=== PATIENT | female | born 1965 | race Caucasian/White ===

== ENCOUNTER 2018-12-02 08:24 | Inpatient (IN) ==
[2018-12-02] MEDS ORDERED: KETOROLAC 30 MG/ML VIAL IV STA (10:04)
[2018-12-02] MEDS ORDERED: LORazepam 1 MG/2 ML VIAL IV PRN (11:33)
[2018-12-02] MEDS ORDERED: ONDANSETRON INJ 2 MG/ML 2 ML VIAL IV PRN (11:33)
[2018-12-02] MEDS ORDERED: LORazepam 1 MG TAB PO PRN (11:33)
[2018-12-02] MEDS ORDERED: PROMETHAZINE HCL 12.5 MG in SODIUM CHLORIDE 0.9% 50 ML IV PRN (11:33)
--- NOTE | 2018-12-02 11:40 | History & Physical Report ---
Date of Service December 02, 2018 Assessment & Plan (1) Lumbar disc herniation with radiculopathy: At this time the patient has declined over the past several weeks has been scheduled for surgery in the next few weeks but seems unable to tolerate the pain be candidate for urgent decompression and fusion at L5-S1. At this time will admit to the hospital for pain control and have her evaluated by anesthesia and hopefully perform surgery as soon as possible in light of her severe pain and urinary symptoms. This was reviewed in detail the patient and her the understanding Present on Admission?: Yes History of Present Illness Chief Complaint: Severe back and leg pain Primary Care Provider: NO PCP This is a 53-year-old female that presents with severe back and right leg radiculopathy. I did see her in my office last week. She presents with severe back pain radiating to the right buttock posterior lateral thigh extending to her foot. Is markedly limiting her ability to stand and ambulate. She is been unable to sleep. Of note she notices some loss of urinary control. She is tri ed gabapentin as well as oxycodone without any relief of her symptoms. She has been into the ER at least on one occasion. She presents today again to the ER with a marked decline in pain control over the weekend. She denies any worsening weakness to the lower extremity still difficulty with ambulating. The pain does awaken her from sleep. The left lower extremities not affected. Allergies Allergy/AdvReac Type Severity Reaction Status Date / Time No Known Allergies Allergy Unverified 12/02/18 09:17 Home Medications Home Medications Medication Instructions Recorded Confirmed Type albuterol sulfate [Proventil HFA] 2 puff INHALATION QID PRN 12/02/18 12/02/18 History amitriptyline 25 mg PO HS 12/02/18 12/02/18 History cholecalciferol (vitamin D3) 1,000 unit PO DAILY 12/02/18 12/02/18 History [Vitamin D3] fluticasone propion-salmeterol 1 puff INHALATION Q12H 12/02/18 12/02/18 History [Advair Diskus] gabapentin 300 mg PO QID 12/02/18 12/02/18 History methylprednisolone 4 mg PO .TAPER DOSE 12/02/18 12/02/18 History oxycodone-acetaminophen 1 tab PO Q6H PRN 12/02/18 12/02/18 History promethazine 12.5 mg PO Q6H PRN 12/02/18 12/02/18 History valacyclovir 500 mg PO Q12 12/02/18 12/02/18 History Past Med/Surg History Medical History Lumbar herniated disc Family History Other No pertinent family history in first degree relatives Social History Feels Safe at Home: Yes Smoking Status: Current every day smoker Physical Exam Physical Exam: On exam she is most comfortable in the position on her left side. She exhibits markedly positive tension signs straight leg raise on the right some decreased sensation to light touch and cold right lower extremity. There is weakness to dorsiflexion plantarflexion on the right 4/5 compared to the left at a 5 out of 5. Results & Data Vital Signs (Past 12 Hours) Vital Signs Temp Pulse Pulse Resp BP BP Pulse Ox 12/02/18 10:31 60 16 100/48 L 98 12/02/18 08:31 36.6 C 59 L 16 101/77 100 Code Status & VTE Plan VTE Prophylaxis Plan VTE Prophylaxis will be ordered: Yes
[2018-12-02 12:16] LABS: Basophils # (auto) 0.01 K/uL (0-0.2); Basophils % (auto) 0.1 %; Eosinophils # (auto) 0.04 K/uL (0-0.5); Eosinophils % (auto) 0.6 %; Hematocrit (blood only) 34.2 % (37-47); Hemoglobin 11.6 g/dL (12.0-16.0); Immature Granulocytes # (auto) 0.01 K/uL (0.00-0.02); Immature Granulocytes % (auto) 0.1 %; Lymphocytes # (auto) 2.46 K/uL (1.2-3.4); Lymphocytes % (auto) 34.9 %; Mean Corpuscular Hgb Conc 33.9 g/dL (32-36); Mean Corpuscular Volume 91.4 fL (80-100); Mean Platelet Volume 9.9 fL (7.4-10.4); Monocytes # (auto) 0.28 K/uL (0.11-0.59); Neutrophils # (auto) 4.25 K/uL (1.4-6.5); Neutrophils % (auto) 60.3 %; Platelet Count 192 K/uL (130-400); RDW Coefficient of Variation 13.5 % (11.5-14.5); RDW Standard Deviation 44.4 fL (36.4-46.3); Red Blood Count 3.74 M/uL (4.2-5.4); White Blood Count 7.05 K/uL (4.8-10.8)
--- NOTE | 2018-12-02 12:17 | Emergency Department Note ---
Entered by Rivas Cornell acting as a scribe for Vamshi Harris DO History of Present Illness General Chief complaint: Back Injury/Pain Stated complaint: SEVERE LOWER BACK PAIN Time Seen by Provider: 12/02/18 08:36 Source: patient History of Present Illness Provider complaint: Back pain Onset (ago): day(s) (Past couple days) Location: back Radiation: non-radiation Severity: severe Pain Consistency: + other (Worsening) Maximum Pain Intensity: 9 Current Pain Intensity: 9 Relieved By: + none Associated symptoms: + other (Positive incontinence ) The patient is a 53 year old female who presents to the Emergency Room with complaints of worsening, severe lower back pain that has been chronic for months but started to get worse over the past 5 days. The patient rates her pain as a 9/10 and notes that nothing makes it better. The patient adds that over the past 5 days she also has noticed an increase in urinary incontinence. The patient currently has a herniated disc at L5 that is protruding into her S1 nerve. She has surgery scheduled for 2 weeks from now with Dr. Calero. The patient notes that the last time she saw Dr. Calero was 5 days ago and she was told at this time if her symptoms get worse to go to the ED. The patient mentioned that none of her pain medication has worked to relieve her pain even when she takes double her normal dose. Home Medications Home Medications Medication Instructions Recorded Confirmed Type albuterol sulfate [Proventil HFA] 2 puff INHALATION QID PRN 12/02/18 12/02/18 History amitriptyline 25 mg PO HS 12/02/18 12/02/18 History cholecalciferol (vitamin D3) 1,000 unit PO DAILY 12/02/18 12/02/18 History [Vitamin D3] fluticasone propion-salmeterol 1 puff INHALATION Q12H 12/02/18 12/02/18 History [Advair Diskus] gabapentin 300 mg PO QID 12/02/18 12/02/18 History methylprednisolone 4 mg PO .TAPER DOSE 12/02/18 12/02/18 History oxycodone-acetaminophen 1 tab PO Q6H PRN 12/02/18 12/02/18 History promethazine 12.5 mg PO Q6H PRN 12/02/18 12/02/18 History valacyclovir 500 mg PO Q12 12/02/18 12/02/18 History Allergies Allergy/AdvReac Type Severity Reaction Status Date / Time No Known Allergies Allergy Unverified 12/02/18 09:17 Past Med/Surg History Medical History Lumbar herniated disc Family History Other No pertinent family history in first degree relatives Social History Feels Safe at Home: Yes Smoking Status: Current every day smoker Review of Systems See HPI for pertinent positives & negatives. and A total of 10 systems reviewed and were otherwise negative Physical Exam Vital Signs Vital Signs - 24 hr 12/02/18 08:31 12/02/18 10:31 Temperature 36.6 C Temperature Source Oral Sepsis Recent Fever Within 48 Hours No Sepsis New/Unexplained Change in Mental Status No Sepsis Action Taken by Nursing No Action Required Pulse Rate 59 L Pulse Rate [Finger] 60 Respiratory Rate 16 16 Respiratory Effort / Characteristics Non-Labored Respiratory Depth Normal Blood Pressure 101/77 Blood Pressure [Right Arm] 100/48 L Blood Pressure Mean 85 Blood Pressure Mean [Right Arm] 65 Pulse Oximetry 100 98 Oxygen Delivery Method Room Air CONSTITUTIONAL/VITAL SIGNS: Reviewed / noted above. GENERAL: Non-toxic in appearance. INTEGUMENTARY: Warm, dry, and [place]. HEAD: Normocephalic. EYES: without scleral icterus or trauma. ENT/OROPHARYNX: clear and moist. LYMPHADENOPATHY/NECK: Is supple without lymphadenopathy or meningismus. RESPIRATORY: Lungs clear and equal. CARDIOVASCULAR: Regular rate and rhythm. GI/ABDOMEN: Soft and nontender. No organomegaly or pulsatile mass. No rebound or guarding. Normal bowel sounds. EXTREMITIES: Warm and well perfused. BACK: No CVA tenderness. NEUROLOGICAL: Intact without focal deficits. PSYCHIATRIC: normal affect. MUSCULOSKELETAL: Normally developed with good muscle tone. Course 0837: Past medical records reviewed. The patient was evaluated in room B03B, and a complete history and physical examination were performed. 0907: I spoke to Dr. Galilea Montanez about the patient's case. He is going to come evaluate the patient after he is done in the OR. 1205: Dr. Galilea Montanez evaluated the patient and will be accepting her for further evaluation and treatment. Consultations Consultation #1: I spoke to Dr. Calero - [facility] about the patient's case. He is going to come evaluate the patient. Time: 09:07 Consultation #2: Dr. Calero - [facility] evaluated the patient and will be accepting her for further evaluation and treatment. Time: 12:05 Administered Medications Discontinued Medications Ketorolac Tromethamine (Toradol) 30 mg IV NOW STA Stop: 12/02/18 10:05 Last Admin: 12/02/18 10:31 Dose: 30 mg Documented by: [id number] Medical Decision Making Differential Diagnosis Differential: Musculoskeletal, Disc Herniation, Fracture, Cord Compression, Discitis, Infectious, Aortic Pathology, Renal Colic, UTI/Pyelonephritis, Acute Exacerbation of Chronic Pain, Sciatica, Cauda Equina, amongst other pathologies entertained. Medical Records Attestation: I reviewed the patient's medical records. Home Medications Current Medication List: was personally reviewed by me Laboratory Data Attestation: I reviewed the patient's lab results. Result diagrams: 12/02/18 12:01 12/02/18 12:01 Blood Pressure Blood Pressure Findings: Low blood pressure Blood Pressure Disposition: Referred to patients primary care provider DEYANIRA Rosenberg Is a 53-year-old female who presents to the ED with a chief complaint of low back pain. The patient was seen by Dr. Calero about 5 days ago in the office. The patient reports having L5 herniated disc that required surgery and her surgery was originally scheduled for the 16th or th of the month. The patient states that she has had increased pain as well as some urinary incontinence. She was told to come here for further evaluation of her symptoms worsen. The patient has normal vital signs. She is afebrile. She ambulates with mild discomfort. The patient does not have any focal neurologic symptoms on my exam. I spoke with Dr. Calero about the patient. He will see her in the ED. He is admitting her after he evaluated her. She was given IV Toradol for pain. Impression & Plan Intractable low back pain The scribe's documentation has been prepared under my direction and personally reviewed by me in its entirety. I confirm that the note above accurately reflects all work, treatment, procedures, and medical decision making performed by me.
[2018-12-02 12:38] LABS: Alanine Aminotransferase 32 U/L (12-78); Albumin Level 3.6 gm/dl (3.4-5.0); Aspartate Aminotransferase 13 U/L (15-37); BUN Creatinine Ratio 29.2 (10-20); Blood Urea Nitrogen 25 mg/dl (7-18); Calcium 8.7 mg/dl (8.5-10.1); Carbon Dioxide 31 mmol/L (21-32); Chloride 102 mmol/L (98-107); Est GFR (Non-African American) 79.3; Glucose 128 mg/dl (70-99); Potassium 3.9 mmol/L (3.5-5.1); Sodium 139 mmol/L (136-145)
[2018-12-02 12:41] LABS: Albumin Globulin Ratio 1.3 (0.9-2); Alkaline Phosphatase 35 U/L (45-117); Bilirubin,Total 0.2 mg/dl (0.2-1); Globulin 2.8 gm/dl (2.5-4.0); Total Protein 6.4 gm/dl (6.4-8.2)
[2018-12-02 12:44] LABS: Pregnancy Test, Serum Negative (Negative)
[2018-12-02] MEDS ORDERED: CEFAZOLIN 2000MG 2,000 MG/15 ML SYR IV SCH (13:30)
[2018-12-02] MEDS ORDERED: GABAPENTIN 300 MG CAP PO SCH (14:00)
[2018-12-02] MEDS ORDERED: PROMETHAZINE HCL 25 MG TAB PO PRN (14:33)
[2018-12-02] MEDS ORDERED: ALBUTEROL HFA 8 GM INHALER INH PRN (14:33)
[2018-12-02] MEDS: LACTATED RINGER'S 1,000 ML IV SCH (14:48)
--- NOTE | 2018-12-02 16:00 | Anesthesiology Consultation ---
Date of Service December 02, 2018 Assessment & Plan Chart Review Chart Review: Acceptable Risk for Surgery and Patient NOT seen in Pre Admission Testing Consults Requested none ASA ASA3 Proposed Anesthesia Anesthesia Type: General History Height/Weight Height: 5 ft 3 in Weight: 93.8 kg Allergies Allergy/AdvReac Type Severity Reaction Status Date / Time No Known Allergies Allergy Unverified 12/02/18 09:17 Medications Home Medications Medication Instructions Recorded Confirmed Last Taken albuterol sulfate [Proventil HFA] 2 puff INHALATION QID PRN 12/02/18 12/02/18 12/02/18 01:40 amitriptyline 25 mg PO HS 12/02/18 12/02/18 12/02/18 03:00 50mg cholecalciferol (vitamin D3) 1,000 unit PO DAILY 12/02/18 12/02/18 11/30/18 [Vitamin D3] fluticasone propion-salmeterol 1 puff INHALATION Q12H 12/02/18 12/02/18 12/02/18 01:40 [Advair Diskus] gabapentin 300 mg PO QID 12/02/18 12/02/18 12/02/18 07:15 600mg methylprednisolone 4 mg PO .TAPER DOSE 12/02/18 12/02/18 12/02/18 01:40 oxycodone-acetaminophen 1 tab PO Q6H PRN 12/02/18 12/02/18 12/02/18 07:15 2 tablets promethazine 12.5 mg PO Q6H PRN 12/02/18 12/02/18 12/01/18 valacyclovir 500 mg PO Q12 12/02/18 12/02/18 12/02/18 01:40 Active Medications Generic Name Dose Route Start Last Admin Trade Name Freq PRN Reason Stop Dose Admin Lactated Ringer's 1,000 mls @ 75 mls/hr 12/02/18 11:45 12/02/18 14:48 Lr IV 01/01/19 11:44 75 mls/hr .[id number] SALTY Administration Past Medical History Medical History Anxiety and depression Asthma Lumbar herniated disc Obesity Osteoarthritis Tobacco abuse Exercise / Class Metabolic Activity III < 4 Walking/Shop/Light housework Past Family History Family History Other No pertinent family history in first degree relatives Past Anesthesia History No Hx of Anesthesia Complications and No Family Hx of Anesthesia Complications History of PONV No Hx of PONV and No Hx of Motion Sickness Social History Smoking Status: Current every day smoker tobacco type: cigarettes Do You Dip or Chew Tobacco: No Hx Alcohol Use: Yes Alcohol type: beer and wine alcohol intake frequency: holidays/special occasions only Hx Substance Use: No Physical Exam Vital Signs Last Vital Signs Temp 36.4 C L 12/02/18 15:32 Pulse 55 L 12/02/18 15:32 Resp 19 12/02/18 15:32 BP 88/56 L 12/02/18 15:32 Pulse Ox 96 12/02/18 15:32 Constitutional + obese ENMT Mouth: no dentition abnormality Thyromental Distance: > or= 3.5 Finger Breadths Mallampati Class: II Neck normal visual inspection and trachea midline; neck extension not limited Respiratory normal respiratory effort Auscultation: lungs clear to auscultation bilaterally Cardiovascular Rate/Rhythm: regular rate and regular rhythm Heart Sounds: no murmur Vessels: no carotid bruit Musculoskeletal Spine: normal cervical ROM Neurologic moves all extremities Motor/Sensory: + sensory deficit (low back/legs) Psychiatric Orientation: alert and oriented x 3 Testing Laboratory Results 12/02/18 12:01 12/02/18 12:01
[2018-12-02] MEDS: GABAPENTIN 300 MG CAP PO SCH ×2 (17:14→20:18)
[2018-12-02] MEDS: OXYCODONE/ACETAMINOPHEN 5mg/325mg TAB PO PRN ×2 (17:55→21:57)
[2018-12-02] MEDS: VALACYCLOVIR HCL 500 MG TABLET PO SCH (20:18)
[2018-12-02] MEDS: DOCUSATE SODIUM 100 MG CAP PO SCH (20:18)
[2018-12-02] MEDS: AMITRIPTYLINE HCL 25 MG TAB PO SCH (20:19)
[2018-12-02] MEDS: FLUTICASONE/SALMETEROL 100/50 (ADVAIR) 14 PUFF/1 INHALER INH SCH (20:19)
[2018-12-03] MEDS: OXYCODONE/ACETAMINOPHEN 5mg/325mg TAB PO PRN ×2 (02:23→08:22)
[2018-12-03] MEDS: LACTATED RINGER'S 1,000 ML IV SCH ×3 (05:32→22:03)
[2018-12-03] MEDS ORDERED: CEFAZOLIN 2000MG 2,000 MG/15 ML SYR IV SCH (06:00)
[2018-12-03] MEDS: CHOLECALCIFEROL 1,000 UNITS TAB PO SCH (09:20)
[2018-12-03] MEDS: GABAPENTIN 300 MG CAP PO SCH ×4 (09:20→21:00)
[2018-12-03] MEDS: FLUTICASONE/SALMETEROL 100/50 (ADVAIR) 14 PUFF/1 INHALER INH SCH ×2 (09:21→21:01)
[2018-12-03] MEDS: VALACYCLOVIR HCL 500 MG TABLET PO SCH ×2 (09:21→20:59)
[2018-12-03] MEDS: DOCUSATE SODIUM 100 MG CAP PO SCH ×2 (09:21→21:00)
[2018-12-03] MEDS ORDERED: fentaNYL citrate 100 MCG/2 ML VIAL ONE ×2 (13:25→16:15)
[2018-12-03] MEDS ORDERED: ROCURONIUM BROMIDE 10 MG/ML 5 ML VIAL ONE ×3 (13:25→15:58)
[2018-12-03] MEDS ORDERED: GLYCOPYRROLATE 0.2 MG/ML VIAL ONE (13:25)
[2018-12-03] MEDS ORDERED: MIDAZOLAM HCL 1 MG/ML 2ML VIAL ONE (13:25)
[2018-12-03] MEDS ORDERED: NEOSTIGMINE METHYLSULFATE 1 MG/ML 10ML VIAL ONE (13:25)
[2018-12-03] MEDS ORDERED: DEXAMETHASONE SOD INJ 4 MG/ML VIAL ONE ×3 (13:25→15:58)
[2018-12-03] MEDS ORDERED: ONDANSETRON INJ 2 MG/ML 2 ML VIAL ONE (13:25)
[2018-12-03] MEDS ORDERED: PROPOFOL IV EMULSION 10 MG/ML 20 ML VIAL IV ONE (13:25)
[2018-12-03] MEDS ORDERED: LIDOCAINE HCL 2% 2 ML VIAL/AMP(20MG/ML) INFIL ONE (13:25)
[2018-12-03] MEDS ORDERED: ePHEDrine sulfate 50 MG/ML AMP IV PRN (13:50)
[2018-12-03] MEDS ORDERED: ONDANSETRON INJ 2 MG/ML 2 ML VIAL IV PRN ×2 (13:50→18:09)
[2018-12-03] MEDS ORDERED: ATROPINE SULFATE 0.1 MG/ML 10ML SYR IV PRN (13:50)
[2018-12-03] MEDS ORDERED: fentaNYL citrate 100 MCG/2 ML VIAL IV PRN (13:50)
--- NOTE | 2018-12-03 13:53 | History & Physical Bridge Note ---
Date of Service December 03, 2018 History & Physical Bridge Note I have examined the patient, reviewed the History & Physical and in the interval since the performance of the History & Physical I have noted the following changes of clinical significance: no changes noted
[2018-12-03] MEDS ORDERED: BUPIVACAINE/EPINEPHRINE 0.5% MPF 1:200,000 30 ML VIAL ONE (14:06)
[2018-12-03] MEDS ORDERED: BACITRACIN INJ 50,000 UNIT VIAL ONE (14:07)
[2018-12-03] MEDS ORDERED: FLOSEAL HEMOSTATIC MATRIX 10ML TOP ONE (14:36)
--- NOTE | 2018-12-03 16:03 | Operative Report ---
Post Operative Report Pre & Post Diagnosis Operation Date: 12/03/18 15:05 Pre-Op Diagnosis: HERNIATED DISK L5-S1 Post-Op Diagnosis: HERNIATED DISK L5-S1 Procedure Operation Date: 12/03/18 15:05 Actual Procedures #1 lumbar decompression with medial facetectomy L5-S1. #2 posterior spinal fusion L5-S1 per #3 placed posterior instrumentation L5-S1. #4 interbody fusion L5-S1. #5 placement of peek cage 12 x 22 mm L5-S1 per #6 placement of local autograft in the posterior lateral gutters. #7 placement Feese collagen sponge, master graft in the posterior lateral gutters and ostial amp in the interbody space. Surgeon Lopez Calero, Mangle Press Catcher Alma Tucker Estimated Blood Loss 150 Findings See Below The patient is 5 foot 3 inches tall weighing over 93 kg with a BMI in excess of 36. The patient's body habitus did add significant technical difficulty throughout the procedure adding 35% increase in operative time. Specimens None Indications This is a 53-year-old female who presents with a severe radiculopathy and back pain. After failing extensive course of nonoperative care is here for surgical intervention. Description of Procedure Patient was met with identified and informed consent obtained. Patient was then taken to the operative suite underwent intubation placed in the prone position on the Guerrero table on top of the Chuck frame. All bony prominences well- padded eyes inspected to ensure no external pressure placed upon the peer at this point lumbar spine was prepped and draped in the normal sterile fashion. Sharp dissection with the assistance of Bovie cautery was performed on August exposing the lamina and transverse processes of L5 and sacral ala bilaterally. From caudal cephalad fashion plate laminectomy of L5 was performed including medial facetectomy and foraminotomy right. Identified a massive herniated fragment on the right with significant adhesions to the traversing S1 nerve root. It was mobilized medially and all loose fragments addressed. Pedicle screws were then placed in L5 and S1 levels bilaterally with assistance of fluo roscopy the purposes lexi placed. By way of a transforaminal portion right complete discectomy was performed endplates curetted to subcortical bleeding bone and a 12 x 22 mm peek cage filled with ostium bone graft tapped in position. The rods were then locked in final position bilaterally. The transverse processes of L5 and sacral ala bur to subcortical bleeding bone. Infuse collagen sponge master graft and local autograft was placed in the posterior lateral gutters. 15 round OSCAR drain inserted. The incision was then closed with 1 Vicryl in the fascia 2-0 Vicryl subcutaneously and 4 Monocryl for final skin closure. Steri-Strips dressings placed. Patient awakened taken to PACU in stable condition. Please note Alma Tucker present throughout the entire procedure involved the patient positioning complex portions of the surgery and final skin closure. Lastly spinal cord monitoring was utilized throughout the procedure no changes noted. I attest to the content of the Intraoperative Record and any orders documented therein. Any exceptions are noted below.
--- NOTE | 2018-12-03 16:17 | Fluoroscopy Report ---
FL lumbar spine 2-3V CLINICAL HISTORY: 53 years-old Female presenting with L5-S1 DECOMPRESSION/FUSION. TECHNIQUE: 2 fluoroscopic image(s) recorded as part of an intraoperative procedure. COMPARISON: None. FINDINGS/IMPRESSION: Posterior bilateral transpedicular screw and lexi fixation of L5-S1 with interbody spacer and L5 keisha ectomy. Normal anatomic alignment. Please see surgical report for further details. Fluoroscopy dosage (mGy): 15.31. Fluoroscopy time: 15.4 seconds. Number or time of high level fluoroscopy (HLF), digital spot, or digital subtraction images: 0. Electronically signed by: Rishabh Kendall M.D. 12/03/2018 4:16 PM
--- NOTE | 2018-12-03 16:40 | Anesthesiology Progress Note ---
Date of Service December 03, 2018 Anesthesia Post Procedure Vital Signs Vital Signs: Temp Pulse Pulse Resp BP BP Pulse Ox 12/03/18 16:30 88 20 113/62 97 12/03/18 16:20 36.5 C 73 12 123/69 97 12/03/18 13:33 36.5 C 76 16 127/85 97 12/03/18 07:53 36.4 C L 57 L 9 L 95/62 L 98 12/02/18 23:10 36.6 C 63 16 97/66 L 97 12/02/18 21:54 68 106/69 98 12/02/18 21:52 89/53 L 12/02/18 17:36 97/63 L Pain Intensity Back: Pain Intensity: 4 Transfer of Care Handoff Completed per policy Notes Mental Status: alert / awake / arousable Patient Amnestic to Procedure: Yes Nausea / Vomiting: adequately controlled Pain: adequately controlled Airway Patency, RR, SpO2: stable & adequate BP & HR: stable & adequate Hydration State: stable & adequate Anesthetic Complications: no major complications apparent and Pt Satisfied with anesthetic care
[2018-12-03] MEDS: HYDROmorphone INJ 1 MG/ML SYRINGE IV PRN ×8 (16:47→17:33)
[2018-12-03] MEDS ORDERED: LORazepam 1 MG/2 ML VIAL IV STA (17:44)
[2018-12-03] MEDS ORDERED: HYDROmorphone INJ 0.5 MG/0.5 ML SYR IV PRN (18:09)
[2018-12-03] MEDS ORDERED: SOD PHOSPHATE/SOD BIPHOSPHATE ENEMA 132 ML BTL PR PRN (18:09)
[2018-12-03] MEDS ORDERED: DO NOT ADMINISTER PNEUMOCOCCAL VACCINE PRN (18:09)
[2018-12-03] MEDS ORDERED: TRAMADOL HCL 50 MG TABLET PO PRN (18:09)
[2018-12-03] MEDS ORDERED: NALOXONE HCL 0.4 MG/1 ML VIAL/CARP IV PRN (18:09)
[2018-12-03] MEDS ORDERED: PROMETHAZINE HCL 12.5 MG in SODIUM CHLORIDE 0.9% 50 ML IV PRN (18:09)
[2018-12-03] MEDS ORDERED: BISACODYL 10 MG SUPP PR PRN (18:09)
[2018-12-03] MEDS ORDERED: ALUMINUM/MAGNESIUM SUSP 30 ML UDC PO PRN (18:09)
[2018-12-03] MEDS ORDERED: FAMOTIDINE 20 MG TAB PO PRN (18:09)
[2018-12-03] MEDS ORDERED: METOCLOPRAMIDE HCL INJ 5 MG/ML 2 ML VIAL IV PRN (18:09)
[2018-12-03] MEDS ORDERED: DO NOT ADMINISTER FLU VACCINE PRN (18:09)
[2018-12-03] MEDS ORDERED: LORazepam 0.5 MG/1 ML VIAL IV PRN (18:09)
[2018-12-03] MEDS ORDERED: ONDANSETRON 4 MG TAB PO PRN (18:09)
[2018-12-03] MEDS ORDERED: LORazepam 0.5 MG TAB PO PRN (18:09)
[2018-12-03] MEDS ORDERED: MAGNESIUM HYDROXIDE SUSP 30 ML UDC PO PRN (18:09)
[2018-12-03] MEDS ORDERED: ACETAMINOPHEN 500 MG TAB PO PRN (18:09)
[2018-12-03] MEDS: DOCUSATE SODIUM/SENNA 50/8.6MG TAB PO SCH (21:00)
[2018-12-03] MEDS: KETOROLAC 30 MG/ML VIAL IV SCH (21:01)
[2018-12-03] MEDS: AMITRIPTYLINE HCL 25 MG TAB PO SCH (21:01)
[2018-12-03] MEDS: CEFAZOLIN 2000MG 2,000 MG/15 ML SYR IV SCH (21:08)
[2018-12-03] MEDS: OXYCODONE HCL IR 5 MG TAB (IMMEDIATE RELEASE) PO PRN (22:52)
[2018-12-04] MEDS: KETOROLAC 30 MG/ML VIAL IV SCH ×3 (02:50→14:06)
[2018-12-04] MEDS: OXYCODONE HCL IR 5 MG TAB (IMMEDIATE RELEASE) PO PRN ×5 (02:59→20:15)
[2018-12-04] MEDS: LACTATED RINGER'S 1,000 ML IV SCH ×3 (04:39→19:26)
[2018-12-04] MEDS: CEFAZOLIN 2000MG 2,000 MG/15 ML SYR IV SCH (06:12)
[2018-12-04] MEDS: POLYETHYLENE (MIRALAX) 17 GM PACK PO SCH ×3 (06:23→18:43)
[2018-12-04 07:35] LABS: Basophils # (auto) 0.01 K/uL (0-0.2); Basophils % (auto) 0.1 %; Hematocrit (blood only) 35.4 % (37-47); Hemoglobin 11.8 g/dL (12.0-16.0); Immature Granulocytes # (auto) 0.03 K/uL (0.00-0.02); Immature Granulocytes % (auto) 0.2 %; Lymphocytes # (auto) 0.92 K/uL (1.2-3.4); Lymphocytes % (auto) 7.6 %; Mean Corpuscular Hgb Conc 33.3 g/dL (32-36); Mean Corpuscular Volume 93.7 fL (80-100); Mean Platelet Volume 9.7 fL (7.4-10.4); Monocytes # (auto) 0.35 K/uL (0.11-0.59); Monocytes % (auto) 2.9 %; Neutrophils # (auto) 10.73 K/uL (1.4-6.5); Neutrophils % (auto) 89.2 %; Platelet Count 205 K/uL (130-400); RDW Coefficient of Variation 14.1 % (11.5-14.5); RDW Standard Deviation 47.9 fL (36.4-46.3); Red Blood Count 3.78 M/uL (4.2-5.4); White Blood Count 12.04 K/uL (4.8-10.8)
[2018-12-04 08:08] LABS: BUN Creatinine Ratio 24.2 (10-20); Calcium 8.7 mg/dl (8.5-10.1); Creatinine Clr Calc Pharmacy 84.3 ml/min; Est GFR (African American) 90.7; Est GFR (Non-African American) 78.2; Potassium 4.8 mmol/L (3.5-5.1)
[2018-12-04] MEDS: GABAPENTIN 300 MG CAP PO SCH ×4 (08:57→20:15)
[2018-12-04] MEDS: FLUTICASONE/SALMETEROL 100/50 (ADVAIR) 14 PUFF/1 INHALER INH SCH ×2 (08:57→20:16)
[2018-12-04] MEDS: DOCUSATE SODIUM 100 MG CAP PO SCH ×2 (08:57→20:15)
[2018-12-04] MEDS: CHOLECALCIFEROL 1,000 UNITS TAB PO SCH (08:57)
[2018-12-04] MEDS: VALACYCLOVIR HCL 500 MG TABLET PO SCH ×2 (08:57→20:15)
--- NOTE | 2018-12-04 09:04 | Orthopedic Progress Note ---
Date of Service December 04, 2018 Assessment & Plan (1) Lumbar disc herniation with radiculopathy: This time will initiate physical therapy advance her bowel regimen anticipate discharge home in the next few days. Present on Admission?: Yes Subjective Patient's back pain is controlled leg pain markedly improved. Physical Exam Physical Exam: On exam patient is comfortable with excellent strength testing. Results & Data Vital Signs (Past 12 Hours) Vital Signs Temp Pulse Resp BP BP Pulse Ox 12/04/18 07:04 36.6 C 78 18 104/68 94 12/04/18 02:56 37 C 76 18 98/60 L 95 12/03/18 23:50 36.5 C 84 16 98/60 L 95
[2018-12-04] MEDS: ACETAMINOPHEN 1,000 MG/100 ML VIAL IV PRN (10:21)
[2018-12-04] MEDS: AMITRIPTYLINE HCL 25 MG TAB PO SCH (20:15)
[2018-12-04] MEDS: DOCUSATE SODIUM/SENNA 50/8.6MG TAB PO SCH (20:15)
[2018-12-05] MEDS: OXYCODONE HCL IR 5 MG TAB (IMMEDIATE RELEASE) PO PRN ×6 (00:24→21:49)
[2018-12-05] MEDS: POLYETHYLENE (MIRALAX) 17 GM PACK PO SCH ×4 (00:25→17:32)
[2018-12-05] MEDS: GABAPENTIN 300 MG CAP PO SCH ×4 (09:15→20:48)
[2018-12-05] MEDS: CHOLECALCIFEROL 1,000 UNITS TAB PO SCH (09:15)
[2018-12-05] MEDS: VALACYCLOVIR HCL 500 MG TABLET PO SCH ×2 (09:16→20:47)
[2018-12-05] MEDS: DOCUSATE SODIUM 100 MG CAP PO SCH ×2 (09:16→20:48)
[2018-12-05] MEDS: FLUTICASONE/SALMETEROL 100/50 (ADVAIR) 14 PUFF/1 INHALER INH SCH ×2 (09:17→20:46)
--- NOTE | 2018-12-05 12:22 | Orthopedic Progress Note ---
Date of Service December 05, 2018 Assessment & Plan (1) Lumbar disc herniation with radiculopathy: At this time we will maintain physical therapy and OSCAR drain. Anticipate possible discharge home tomorrow. Present on Admission?: Yes Subjective Back pain is controlled leg symptoms markedly improved. Physical Exam Physical Exam: On exam patient is sitting at the bedside. She is good strength testing. Results & Data Vital Signs (Past 12 Hours) Vital Signs Temp Pulse Resp BP Pulse Ox 12/05/18 08:00 36.8 C 72 16 113/72 96
[2018-12-05] MEDS ORDERED: DEXAMETHASONE SOD PHOSPHATE 8 MG in SYRINGE 0 ML IV ONE (12:45)
[2018-12-05] MEDS: AMITRIPTYLINE HCL 25 MG TAB PO SCH (20:47)
[2018-12-05] MEDS: DOCUSATE SODIUM/SENNA 50/8.6MG TAB PO SCH (20:47)
[2018-12-06] MEDS: POLYETHYLENE (MIRALAX) 17 GM PACK PO SCH ×3 (02:23→14:21)
[2018-12-06] MEDS: OXYCODONE HCL IR 5 MG TAB (IMMEDIATE RELEASE) PO PRN ×4 (04:46→20:19)
[2018-12-06] MEDS: CHOLECALCIFEROL 1,000 UNITS TAB PO SCH (09:27)
[2018-12-06] MEDS: VALACYCLOVIR HCL 500 MG TABLET PO SCH ×2 (09:27→20:21)
[2018-12-06] MEDS: GABAPENTIN 300 MG CAP PO SCH ×4 (09:27→20:20)
[2018-12-06] MEDS: FLUTICASONE/SALMETEROL 100/50 (ADVAIR) 14 PUFF/1 INHALER INH SCH ×2 (09:27→20:21)
[2018-12-06] MEDS: DOCUSATE SODIUM 100 MG CAP PO SCH ×2 (09:27→20:21)
--- NOTE | 2018-12-06 10:07 | Discharge Summary ---
Date of Service December 06, 2018 Admission HPI Per Admitting Provider This is a 53-year-old female that presents with severe back and right leg radiculopathy. I did see her in my office last week. She presents with severe back pain radiating to the right buttock posterior lateral thigh extending to her foot. Is markedly limiting her ability to stand and ambulate. She is been unable to sleep. Of note she notices some loss of urinary control. She is tried gabapentin as well as oxycodone without any relief of her symptoms. She has been into the ER at least on one occasion. She presents today again to the ER with a marked decline in pain control over the weekend. She denies any worsening weakness to the lower extremity still difficulty with ambulating. The pain does awaken her from sleep. The left lower extremities not affected. Principal Diagnosis Herniated was pulposis with radiculopathy Discharge Data Allergies Allergy/AdvReac Type Severity Reaction Status Date / Time No Known Allergies Allergy Unverified 12/02/18 09:17 Consultations 12/02/18 11:35 Consult Anesthesiology Stat 12/02/18 12:13 ED Decision to Admit Stat 12/03/18 18:09 Consult Case Management - Discharge Planning Routine Procedures Performed Operation Date: 12/03/18 15:05 Actual Procedures p L5-S1 Decompression and Fusion, Spinal Cord Monitoring(Not Applicable) - Lopez Calero DO Ordered Studies 12/03/18 14:00 FL fluoroscopy <1hr Routine FL lumbar spine 2-3V Routine Hospital Course (1) Lumbar disc herniation with radiculopathy: Patient was admitted to hospital with severe back and leg pain. She subsequently underwent lumbar depression fusion following day. Symptoms markedly improved postoperative. She is up and ambulating. OSCAR drain decreased appropriately. Subsequently discharged. Discharge orders instructions from the chart for further review. Total Time Total Time Spent Total Time Spent (In Minutes): 30 minutes Discharge Plan Discharge Items Patient Disposition: Transfer Inpatient Rehab Fac Reason For Visit: HERNIATED DISK L5-S1 Discharge Diagnosis: lumbar disk herniation Discharge Goals: Decrease discomfort Activity: Per 'Additional Instructions' section Non-emergency contact: Primary Care Provider Call non-emergency contact if: you have any medication questions Follow-up/Referrals: PCP,NO [Primary Care Provider] - Diet: Regular Addtl Provider Instructions: ACTIVITY RECOMMENDATIONS: SELF CARE INSTRUCTIONS AFTER THORACIC/LUMBAR FUSIONS 1. You may walk to your tolerance. It is good exercise for your legs and back. Expect some back and intermittent leg aches and pains. 2. You may perform "counter-top" level activities (make a sandwich, sonia with a project, etc.). 3. No bending or lifting of more than 10 pounds or back twisting of any nature (roll like a log when turning in bed). 4. You may ride in a car for 20-30 minutes at a time. No driving until after your first visit with your doctor. 5. Frequent changes of position and restricting sitting to 30 minutes at a time will help limit the amount of back spasms and stiffness you may experience. 6. You may discontinue the use of ambulatory aids (cane, crutches, etc.) once your strength and confidence allow. 7. You may hook and eye machine operator the shower and let water strike your incision when you arrive home at least once daily. Do not take a tub bath, sit in a hot tub or go into a swimming pool until after your first recheck in the office. SPECIAL CARE INSTRUCTIONS: VERY IMPORTANT TO READ AND REVIEW A. Your surgical incision has been closed with a cosmetic suture under the skin that will dissolve in about 6 weeks. In 14 days, you can use a pair of clean scissors and cut the suture that is left outside of the skin at the ends of your incision. 1. The small skin tapes can be removed 7 days after surgery if they have not fallen off by that point. 2. You may keep the wound open to air as much as possible to promote healing after post-op day number 5 unless told otherwise by your doctor. 3. If you think the wound looks like it is becoming infected (redness or worsening drainage) and/or you are experiencing fever, chill or worsening back pain and muscle spasms, contact the office so that we may evaluate you as soon as possible. B. Complications are uncommon, but please contact us if you have any signs or symptoms of: 1. wound infection (fever higher than 102.5 degrees F, redness, separation of wound, drainage, or increasing pain from the incision) 2. blood clots in legs (pain, swelling, redness and warmth in legs) 3. urinary tract infection (fever higher than 102.5 degrees F, burning upon urination or increased frequency of urination) 4. nerve problems (inability to walk on your toes or heels, numbness, loss of bowel or bladder control) 5. any other symptoms that concern you C. Please call the office at if you have any concerns or questions about your operation or recovery. D. No smoking! Smoking drastically decreases the chance of a solid fusion. E. Do not take any anti-inflammatory medications (Indocin, Advil, Motrin, Aspirin, Naprosyn, etc.) as these may inhibit the chance of a solid fusion. Tylenol is okay to take for pain. MANAGING PAIN AFTER SPINAL SURGERY 1. Narcotic medication is intended for short-term use and will be provided for surgical pain. Surgical pain usually lasts for a period of 4-6 weeks. Narcotic medication includes Percocet, Vicodin, Darvocet, Tylenol #3 or Lortab. 2. Longer-term pain is more appropriately treated with non-narcotic medication such as Tylenol ES. 3. Muscle spasm is not appropriately treated with narcotics. Muscle relaxers such as Soma, Flexeril or Skelaxin can be used along with Tylenol ES. 4. Remember that we all live with some "aches and pains". This is not unusual or uncommon after an injury or as we get older. a. Back pain is expected and may include muscle spasms for 4 to 6 weeks after surgery. The pain should gradually improve. If the pain worsens for no apparent reason, please contact the office. b. Intermittent leg pain may also be experienced and should not be concerned about unless it worsens for no apparent reason. If so, please contact the office. 5. We will provide appropriate medication within the normal guidelines of their prescribed use. We will also be very cautious and aware of potential abuse and extended duration of patients' medication needs. a. Pain medications are for your comfort and to assist with sleep and rest so that the tissue can heal. They are not provided in order to return to normal activity and should not be used through the day. To do so or worsening pain at night can result from ongoing tissue damage and development of tolerance to the prescribed medicine. 6. Please allow 2-3 days to process refills. Prescriptions will not be mailed but must be picked up at the office. FOLLOW UP VISIT: Keep your scheduled follow-up appointment. Any questions, please call the office at . Prescriptions: New oxycodone 5 mg Tablet 5 mg PO Q4H PRN (Reason: Pain) Qty: 30 RF: 0 Continued promethazine 12.5 mg Tablet 12.5 mg PO Q6H PRN (Reason: Nausea And Vomiting) RF: 0 valacyclovir 500 mg tablet 500 mg PO Q12 RF: 0 oxycodone-acetaminophen 5-325 mg tablet 1 tab PO Q6H PRN (Reason: Pain) RF: 0 amitriptyline 25 mg tablet 25 mg PO HS RF: 0 gabapentin 300 mg Capsule 300 mg PO QID RF: 0 fluticasone propion-salmeterol [Advair Diskus] 100-50 mcg/dose Blister With Device 1 puff INHALATION Q12H RF: 0 methylprednisolone 4 mg Tablets,Dose Pack 4 mg PO .TAPER DOSE RF: 0 albuterol sulfate [Proventil HFA] 90 mcg/actuation Hfa Aerosol Inhaler 2 puff INHALATION QID PRN (Reason: Shortness Of Breath Or Wheezing) RF: 0 cholecalciferol (vitamin D3) [Vitamin D3] 1,000 unit (25 mcg) Tablet 1,000 unit PO DAILY RF: 0 Stand-Alone Forms: [facility] Discharge Orders: Discharge Order (Routine); Ordered 12/06/18 Ordered By: Lopez Calero Skilled Items Patient informed of condition?: Yes DNR: No Discharge Level of Care: Acute rehab Communicable Disease: No Discharge Prognosis: Improving Admission Data Admit Date/Time: 12/03/18 16:06 Attending Provider: Lopez Calero Admit Provider: Lopez Calero Primary Care Provider: PCP,NO Other Providers: Alejandro Campo ; Lopez Calero Service: Surgical Services
[2018-12-06] MEDS: DOCUSATE SODIUM/SENNA 50/8.6MG TAB PO SCH (20:21)
[2018-12-06] MEDS: AMITRIPTYLINE HCL 25 MG TAB PO SCH (20:21)
[2018-12-07] MEDS: OXYCODONE HCL IR 5 MG TAB (IMMEDIATE RELEASE) PO PRN ×4 (00:20→20:53)
--- NOTE | 2018-12-07 09:00 | Orthopedic Progress Note ---
Date of Service December 07, 2018 Assessment & Plan (1) Lumbar disc herniation with radiculopathy: Patient will continue with physical therapy today. We will DC OSCAR drain and dressing change. Continue with pain control. Anticipate discharge to rehab if accepted tomorrow versus home with home health if denied. Supervising Physician Co-Signing Physician Notes Dr. Lopez Calero Subjective Pt is POD #4 s/p posterior lumbar decompression/fusion L5-S1. She complains of back pain and some Right leg pain. Right leg pain is improved compared to pre- operative status. OSCAR drain output is 15cc last shift. Yesterday, she was able to ambulate 400' in PT. +BM She is awaiting for approval to [facility] tomorrow. Review of Systems Review of Systems: All systems reviewed & are unremarkable except as noted in HPI & below Physical Exam Physical Exam: Patient is postoperative day for lumbar decompression fusion L5-S1. She is lying in bed. She is able to sit up so that she may use the restroom.Alert and oriented x3. Moderate distress. Calf is soft nontender bilateral lower extremities. Strength is intact bilateral lower extremities. Lumbar dressing is clean dry and intact. OSCAR drain intact. Results & Data Vital Signs (Past 12 Hours) Vital Signs Temp Pulse Resp BP BP Pulse Ox 12/07/18 07:25 36.5 C 72 16 95/60 L 97 12/06/18 23:15 37 C 88 16 119/83 99
[2018-12-07] MEDS: FLUTICASONE/SALMETEROL 100/50 (ADVAIR) 14 PUFF/1 INHALER INH SCH ×2 (09:04→20:50)
[2018-12-07] MEDS: CHOLECALCIFEROL 1,000 UNITS TAB PO SCH (09:05)
[2018-12-07] MEDS: DOCUSATE SODIUM 100 MG CAP PO SCH ×2 (09:05→20:51)
[2018-12-07] MEDS: GABAPENTIN 300 MG CAP PO SCH ×4 (09:05→20:51)
[2018-12-07] MEDS: VALACYCLOVIR HCL 500 MG TABLET PO SCH ×2 (09:05→20:51)
[2018-12-07] MEDS: ACETAMINOPHEN 1,000 MG/100 ML VIAL IV PRN ×2 (15:55→17:57)
[2018-12-07] MEDS: DOCUSATE SODIUM/SENNA 50/8.6MG TAB PO SCH (20:51)
[2018-12-07] MEDS: AMITRIPTYLINE HCL 25 MG TAB PO SCH (20:51)
[2018-12-08] MEDS: OXYCODONE HCL IR 5 MG TAB (IMMEDIATE RELEASE) PO PRN ×3 (02:15→13:24)
[2018-12-08] MEDS: FLUTICASONE/SALMETEROL 100/50 (ADVAIR) 14 PUFF/1 INHALER INH SCH (08:30)
[2018-12-08] MEDS: DOCUSATE SODIUM 100 MG CAP PO SCH (08:30)
[2018-12-08] MEDS: GABAPENTIN 300 MG CAP PO SCH ×2 (08:30→13:24)
[2018-12-08] MEDS: VALACYCLOVIR HCL 500 MG TABLET PO SCH (08:30)
[2018-12-08] MEDS: CHOLECALCIFEROL 1,000 UNITS TAB PO SCH (08:31)
--- NOTE | 2018-12-08 13:22 | Discharge Summary ---
Date of Service December 08, 2018 Admission HPI Per Admitting Provider This is a 53-year-old female that presents with severe back and right leg radiculopathy. I did see her in my office last week. She presents with severe back pain radiating to the right buttock posterior lateral thigh extending to her foot. Is markedly limiting her ability to stand and ambulate. She is been unable to sleep. Of note she notices some loss of urinary control. She is tried gabapentin as well as oxycodone without any relief of her symptoms. She has been into the ER at least on one occasion. She presents today again to the ER with a marked decline in pain control over the weekend. She denies any worsening weakness to the lower extremity still difficulty with ambulating. The pain does awaken her from sleep. The left lower extremities not affected. Principal Diagnosis Lumbar disc herniation with radiculopathy Discharge Data Allergies Allergy/AdvReac Type Severity Reaction Status Date / Time No Known Allergies Allergy Unverified 12/02/18 09:17 Consultations 12/02/18 11:35 Consult Anesthesiology Stat 12/02/18 12:13 ED Decision to Admit Stat 12/03/18 18:09 Consult Case Management - Discharge Planning Routine Procedures Performed Operation Date: 12/03/18 15:05 Actual Procedures p L5-S1 Decompression and Fusion, Spinal Cord Monitoring(Not Applicable) - Lopez Calero DO Ordered Studies 12/03/18 14:00 FL fluoroscopy <1hr Routine FL lumbar spine 2-3V Routine Hospital Course (1) Lumbar disc herniation with radiculopathy: Patient was admitted to the hospital with severe pain underwent surgery the next day. She tolerated as well as taken to orthopedic for postoperative. She progressed appropriately throughout her hospital stay was originally considering rehab but elected to go home on Saturday. Discharge orders instructions from the chart for further review. Total Time Total Time Spent Total Time Spent (In Minutes): 30 minutes Discharge Plan Discharge Items Patient Disposition: Home - Self-Care Reason For Visit: HERNIATED DISK L5-S1 Discharge Diagnosis: lumbar disk herniation Discharge Goals: Decrease discomfort Activity: Per 'Additional Instructions' section Non-emergency contact: Primary Care Provider Call non-emergency contact if: you have any medication questions Follow-up/Referrals: PCP,NO [Primary Care Provider] - Diet: Regular Addtl Provider Instructions: ACTIVITY RECOMMENDATIONS: SELF CARE INSTRUCTIONS AFTER THORACIC/LUMBAR FUSIONS 1. You may walk to your tolerance. It is good exercise for your legs and back. Expect some back and intermittent leg aches and pains. 2. You may perform "counter-top" level activities (make a sandwich, sonia with a project, etc.). 3. No bending or lifting of more than 10 pounds or back twisting of any nature (roll like a log when turning in bed). 4. You may ride in a car for 20-30 minutes at a time. No driving until after your first visit with your doctor. 5. Frequent changes of position and restricting sitting to 30 minutes at a time will help limit the amount of back spasms and stiffness you may experience. 6. You may discontinue the use of ambulatory aids (cane, crutches, etc.) once your strength and confidence allow. 7. You may luggage liner the shower and let water strike your incision when you arrive home at least once daily. Do not take a tub bath, sit in a hot tub or go into a swimming pool until after your first recheck in the office. SPECIAL CARE INSTRUCTIONS: VERY IMPORTANT TO READ AND REVIEW A. Your surgical incision has been closed with a cosmetic suture under the skin that will dissolve in about 6 weeks. In 14 days, you can use a pair of clean scissors and cut the suture that is left outside of the skin at the ends of your incision. 1. The small skin tapes can be removed 7 days after surgery if they have not fallen off by that point. 2. You may keep the wound open to air as much as possible to promote healing after post-op day number 5 unless told otherwise by your doctor. 3. If you think the wound looks like it is becoming infected (redness or worsening drainage) and/or you are experiencing fever, chill or worsening back pain and muscle spasms, contact the office so that we may evaluate you as soon as possible. B. Complications are uncommon, but please contact us if you have any signs or symptoms of: 1. wound infection (fever higher than 102.5 degrees F, redness, separation of wound, drainage, or increasing pain from the incision) 2. blood clots in legs (pain, swelling, redness and warmth in legs) 3. urinary tract infection (fever higher than 102.5 degrees F, burning upon urination or increased frequency of urination) 4. nerve problems (inability to walk on your toes or heels, numbness, loss of bowel or bladder control) 5. any other symptoms that concern you C. Please call the office at if you have any concerns or questions about your operation or recovery. D. No smoking! Smoking drastically decreases the chance of a solid fusion. E. Do not take any anti-inflammatory medications (Indocin, Advil, Motrin, Aspirin, Naprosyn, etc.) as these may inhibit the chance of a solid fusion. Tylenol is okay to take for pain. MANAGING PAIN AFTER SPINAL SURGERY 1. Narcotic medication is intended for short-term use and will be provided for surgical pain. Surgical pain usually lasts for a period of 4-6 weeks. Narcotic medication includes Percocet, Vicodin, Darvocet, Tylenol #3 or Lortab. 2. Longer-term pain is more appropriately treated with non-narcotic medication such as Tylenol ES. 3. Muscle spasm is not appropriately treated with narcotics. Muscle relaxers such as Soma, Flexeril or Skelaxin can be used along with Tylenol ES. 4. Remember that we all live with some "aches and pains". This is not unusual or uncommon after an injury or as we get older. a. Back pain is expected and may include muscle spasms for 4 to 6 weeks after surgery. The pain should gradually improve. If the pain worsens for no apparent reason, please contact the office. b. Intermittent leg pain may also be experienced and should not be concerned about unless it worsens for no apparent reason. If so, please contact the office. 5. We will provide appropriate medication within the normal guidelines of their prescribed use. We will also be very cautious and aware of potential abuse and extended duration of patients' medication needs. a. Pain medications are for your comfort and to assist with sleep and rest so that the tissue can heal. They are not provided in order to return to normal activity and should not be used through the day. To do so or worsening pain at night can result from ongoing tissue damage and development of tolerance to the prescribed medicine. 6. Please allow 2-3 days to process refills. Prescriptions will not be mailed but must be picked up at the office. FOLLOW UP VISIT: Keep your scheduled follow-up appointment. Any questions, please call the office at . Prescriptions: New oxycodone 5 mg Tablet 5 mg PO Q4H PRN (Reason: Pain) Qty: 30 RF: 0 Continued promethazine 12.5 mg Tablet 12.5 mg PO Q6H PRN (Reason: Nausea And Vomiting) RF: 0 valacyclovir 500 mg tablet 500 mg PO Q12 RF: 0 oxycodone-acetaminophen 5-325 mg tablet 1 tab PO Q6H PRN (Reason: Pain) RF: 0 amitriptyline 25 mg tablet 25 mg PO HS RF: 0 gabapentin 300 mg Capsule 300 mg PO QID RF: 0 fluticasone propion-salmeterol [Advair Diskus] 100-50 mcg/dose Blister With Device 1 puff INHALATION Q12H RF: 0 methylprednisolone 4 mg Tablets,Dose Pack 4 mg PO .TAPER DOSE RF: 0 albuterol sulfate [Proventil HFA] 90 mcg/actuation Hfa Aerosol Inhaler 2 puff INHALATION QID PRN (Reason: Shortness Of Breath Or Wheezing) RF: 0 cholecalciferol (vitamin D3) [Vitamin D3] 1,000 unit (25 mcg) Tablet 1,000 unit PO DAILY RF: 0 Stand-Alone Forms: [facility] Discharge Orders: Discharge Order (Routine); Ordered 12/06/18 Ordered By: Lopez Calero Admission Data Admit Date/Time: 12/03/18 16:06 Attending Provider: Lopez Calero Admit Provider: Lopez Calero Primary Care Provider: PCP,NO Other Providers: Alejandro Campo ; Lopez Calero Service: Surgical Services
== END 2018-12-08 14:29 | disposition home health service (06) | DRG 455 ==
LOC: 3N 08:24 → ED 08:24 → 3N 12:36